=== PATIENT | male | born 1980 | race Caucasian/White ===

== ENCOUNTER 2020-09-10 04:13 | Day surgery (SDC) | payer OTHER ==
[2020-09-06 13:39] VITALS: BMI 27.8
[2020-09-10] MEDS ORDERED: PROPOFOL 20 ML ONE (07:31)
[2020-09-10] MEDS ORDERED: MIDAZOLAM HCL 2 MG/2 ML SINGLE DOSE VIAL ONE ×2 (07:31)
[2020-09-10] MEDS ORDERED: SUCCINYLCHOLINE CHLORIDE 200 MG/10 ML SYRINGE ONE (07:32)
[2020-09-10] MEDS ORDERED: ceFAZolin SODIUM 1 GM VIAL IVPB ONE (07:45)
[2020-09-10] MEDS ORDERED: LIDOCAINE HCL 1%, 10 MG/ML (20ML VIAL) ONE (07:51)
[2020-09-10] MEDS ORDERED: DEXAMETHASONE SOD PHOSPHATE 4 MG/1 ML VIAL ONE (08:05)
[2020-09-10] MEDS ORDERED: LIDOCAINE HCL/PF 2% SDV 5ML VIAL ONE (08:05)
[2020-09-10] MEDS ORDERED: BACITRACIN 15 GM TUBE TOPICAL OINTMENT ONE (08:05)
[2020-09-10] MEDS ORDERED: ceFAZolin SODIUM 1 GM VIAL ONE (08:05)
[2020-09-10] MEDS ORDERED: oxyCODONE HCL 5 MG TABLET PO PRN (08:16)
[2020-09-10] MEDS ORDERED: ONDANSETRON 4 MG/2 ML VIAL IVPUSH PRN (08:29)
[2020-09-10] MEDS ORDERED: PROMETHAZINE HCL 25 MG/1 ML VIAL IVPUSH PRN (08:29)
[2020-09-10] MEDS ORDERED: LACTATED RINGERS SOLUTION 1,000 ML IV SCH (08:30)
[2020-09-10 09:30] VITALS: PULSE 73
[2020-09-10 12:06] VITALS: BP 149/90; TEMP 98.1
== END 2020-09-10 11:45 | disposition home or self-care (01) ==
LOC: JASU-SURG 04:13 → EDSEX 04:13 → JASU-SURG 11:45
PROVIDERS: ATTEND Urology
PROC: 0VTTXZZ Resection of Prepuce, External Approach (ICD-10-PCS; principal; 2020-09-10 07:30)
DX: N47.1 Phimosis (principal)
CPT/HCPCS: 88304-TC; 94760

== ENCOUNTER 2023-10-04 16:30 | Emergency (ER) | payer OTHER ==
[2023-10-04 16:42] VITALS: BP 188/110; PULSE 83; RESP 18; TEMP 98.2; BMI 29.7
[2023-10-04] MEDS ORDERED: AMOX TR/POT CLAV 875MG/125MG TABLETS (FP) ONE (18:08)
[2023-10-04] MEDS: AMOX TR/POT CLAV 875MG/125MG TABLETS (FP) PO ONE (18:13)
== END 2023-10-04 18:16 | disposition home or self-care (01) ==
LOC: JER 16:30
DX: K08.89 Other specified disorders of teeth and supporting structures (principal); K02.9 Dental caries, unspecified
CPT/HCPCS: 99283-25